=== PATIENT | female | born 1975 | race Two or more races ===

== ENCOUNTER 2023-07-23 05:33 | Day surgery (SDC) | payer OTHER ==
[~2023-07-23 05:33] MED LIST: LIPITOR20 MG PO
== END 2023-07-23 11:35 | disposition home or self-care (01) ==
LOC: CIR.AMB 05:33
PROVIDERS: ATTEND Obstetrics & Gynecology
DX: N87.1 Moderate cervical dysplasia (principal); N72 Inflammatory disease of cervix uteri; Z20.822 Contact with and (suspected) exposure to COVID-19; E78.5 Hyperlipidemia, unspecified